=== PATIENT | male | born 1960 | race Caucasian/White ===

== ENCOUNTER 2021-11-23 16:22 | Emergency (ER) | payer OTHER, SELFPAY ==
[2021-11-23 16:44] VITALS: BP 141/74; PULSE 61; RESP 18; TEMP 36.8; O2SAT 98; BMI 25.8
--- NOTE | 2021-11-23 16:52 | ED.BACK ---
HPI - Back Pain/Injury General Chief Complaint: Back Pain/Injury Stated Complaint: Back Pain Time Seen by Provider: 11/23/21 16:51 Source: patient Mode of arrival: ambulatory Limitations: no limitations Related Data Home Medications Medication Instructions Recorded Confirmed gabapentin 300 mg capsule 300 mg PO TID cap 09/08/20 01/04/21 Previous Rx's Medication Instructions Recorded carisoprodol 350 mg tablet 350 mg PO ONCE PRN 30 Days #30 tab 02/13/21 ibuprofen 600 mg tablet 600 mg PO TID PRN #90 tab 06/29/21 meloxicam 15 mg tablet 15 mg PO DAILY #14 tab 11/14/21 hydrocodone 7.5 mg-acetaminophen 1 tab PO BID PRN 15 Days #30 tab 11/15/21 325 mg tablet Allergies Allergy/AdvReac Type Severity Reaction Status Date / Time codeine [CODEINE] Allergy Unknown RASH Verified 11/14/21 15:15 Codeine Sulfate Allergy Unknown facial rash Uncoded 11/14/21 15:15 PMFSH Past Medical History Medical History Carotid stenosis Cervical radiculopathy Lumbar radiculopathy Physical exam Tubular adenoma Surgical History H/O cervical discectomy History of ankle surgery History of inguinal hernia repair History of tonsillectomy Family History Family History Father No problems noted. Mother History of blood clots Maternal Grandmother Stroke Maternal Grandfather History of heart attack Paternal Grandfather Unknown family medical history Paternal Grandmother Unknown family medical history Brother No problems noted. Brother No problems noted. Sister No problems noted. Son No problems noted. Social History Social History Alcohol intake: current Alcohol intake frequency: 3 or more drinks per day Physical Exam Vital Signs: Vital Signs: Last Vital Signs Temp 98.2 F 11/23/21 16:44 Pulse 61 11/23/21 16:44 Resp 18 11/23/21 16:44 BP 141/74 H 11/23/21 16:44 Pulse Ox 98 11/23/21 16:44 BMI result Body Mass Index 25.8 Discharge Plan Discharge Prescriptions: No Action carisoprodol 350 mg tablet 350 mg PO ONCE PRN (Reason: muscle pain) 30 Days Qty: 30 0RF ibuprofen 600 mg tablet 600 mg PO TID PRN (Reason: pain) Qty: 90 2RF hydrocodone-acetaminophen 7.5-325 mg tablet 1 tab PO BID PRN (Reason: pain) 15 Days Qty: 30 0RF gabapentin 300 mg capsule 300 mg PO TID 0RF meloxicam 15 mg tablet 15 mg PO DAILY Qty: 14 0RF
--- NOTE | 2021-11-23 16:58 | ED_ITS ---
HPI - Back Pain/Injury General Chief Complaint: Back Pain/Injury Stated Complaint: Back Pain Time Seen by Provider: 11/23/21 16:51 Source: patient Mode of arrival: ambulatory Limitations: no limitations History of Present Illness HPI Narrative: This is a 61-year-old male past medical history significant for chronic back pain, and chronic lumbar radiculopathy coming in with severe right lower back pain Xyears worse over the past week. patient has been seen by multiple urgent cares and his primary care provider and he is being followed for chronic back pain he is currently taking Vicodin and Soma with relief. However he tells me his pain has been worsening since he started work on Saturday, he tells me it is worse with movement better at rest. He feels like at this time he needs more time off of work as his back pain is getting in the way of his daily life. He denies IV drug abuse. He denies changes in bladder/bowel, paresthesias, numbness or tingling, chest pain, shortness of breath, fevers, chills, nausea, vomiting, weakness. He denies recent back injuries. MD elicited complaint: back pain Pertinent past history: prior back pain Onset (ago): week(s) (2) Timing: constant Severity: severe Pain scale (0-10): 8 Similar Symptoms Previously: Yes Quality: aching and spasming Location: lumbar spine Radiation: none Exacerbating factors: none Relieving factors: none Context: while lifting and turning/twisting Associated symptoms: denies other symptoms Related Data Home Medications Medication Instructions Recorded Confirmed gabapentin 300 mg capsule 300 mg PO TID cap 09/08/20 01/04/21 Previous Rx's Medication Instructions Recorded carisoprodol 350 mg tablet 350 mg PO ONCE PRN 30 Days #30 tab 02/13/21 ibuprofen 600 mg tablet 600 mg PO TID PRN #90 tab 06/29/21 meloxicam 15 mg tablet 15 mg PO DAILY #14 tab 11/14/21 hydrocodone 7.5 mg-acetaminophen 1 tab PO BID PRN 15 Days #30 tab 11/15/21 325 mg tablet Allergies Allergy/AdvReac Type Severity Reaction Status Date / Time codeine [CODEINE] Allergy Unknown RASH Verified 11/14/21 15:15 Codeine Sulfate Allergy Unknown facial rash Uncoded 11/14/21 15:15 Review of Systems Review of Systems: Constitutional : No Weight loss, No Fever, No Chills, No Fatigue, No Malaise ENT/Mouth : No sore throat, No Rhinorrhea Eyes: No Eye Pain, No Swelling, No Redness Cardiovascular : No Chest Pain, No SOB, No Dyspnea on Exertion, No Orthopnea, No Edema, No Palpitations Respiratory : No Cough, No Sputum, No Wheezing Gastrointestinal : No Nausea, No Vomiting, No Diarrhea, No Constipation, No abdominal Pain, No Hematochezia, No Melena Genitourinary : No Dysuria, No Urinary Frequency, No Hematuria, Musculoskeletal : + joint pain (back pain), No Myalgias, No Joint Swelling Skin : No Skin Lesions, No rash Neuro : No Weakness, No Numbness, No Dizziness, No Headache All other systems reviewed and are negative Yes all other systems are reviewed and are negative [facility] Past Medical History Attestation statement: The following information was validated with the patient. Source: old records reviewed and nursing notes reviewed Medical History Carotid stenosis Cervical radiculopathy Lumbar radiculopathy Physical exam Tubular adenoma Surgical History H/O cervical discectomy History of ankle surgery History of inguinal hernia repair History of tonsillectomy Family History Family History Father No problems noted. Mother History of blood clots Maternal Grandmother Stroke Maternal Grandfather History of heart attack Paternal Grandfather Unknown family medical history Paternal Grandmother Unknown family medical history Brother No problems noted. Brother No problems noted. Sister No problems noted. Son No problems noted. Social History Social History Alcohol intake: current Alcohol intake frequency: 3 or more drinks per day Advance Directives: No Advance Directives Information Provided: No Physical Exam Vital Signs: Vital Signs: Last Vital Signs Temp 98.2 F 11/23/21 16:44 Pulse 61 11/23/21 16:44 Resp 18 11/23/21 16:44 BP 141/74 H 11/23/21 16:44 Pulse Ox 98 11/23/21 16:44 BMI result Body Mass Index 25.8 VSS Appearance: Alert.? Oriented X3.? No acute distress.? Head: Normocephalic, atraumatic, no step-offs or deformities Eyes: Pupils equal, round and reactive to light.? ENT: Pharynx normal.? Neck: Normal inspection.? Neck supple.? CVS: Normal heart rate and rhythm.? Pulses normal.? Respiratory: No respiratory distress.? Breath sounds normal.? Abdomen: Soft and nontender.? Skin: Skin warm and dry.? Normal skin color.? Normal skin turgor.? Extremities: No lower extremity edema.? No calf ttp. 5/5 strength to bilateral upper and lower extremities Back: No midline tenderness, no C-spine tenderness, full range of motion, no CVA tenderness bilateral + pain to right-sided lumbar paraspinous muscles. No pain to the left. Positive straight leg raise on the right-hand side. Negative on the left. Neuro: Oriented X 3.? No motor deficit.? No sensory deficit. 2+ patellar reflexes b/l. Course Reevaluation(s) Reevaluation #1: Patient given work note, he will follow up with PCP, educated him on the page managment clinic. Comfortable with DC. Time: 17:20 MDM - Back Pain/Injury MDM Narrative Medical decision making narrative: 1700 61 yo male chronic back pain presents with back pain, feels like his typical worse with movement better at rest it has been present for years however, worse since he started work on saturday. No red flag symptoms. PE significant for pain to right-sided lumbar paraspinous muscles. No pain to the left. Positive straight leg raise on the right-hand side. Negative on the left. Physical exam and history not consistent with cauda equina or epidural abscess. Likely lumbago. Or sciatica. Plan is to give patient a work note. Patient tells me he does not want medication or imaging as he is already had multiple MRIs, x-rays. He has scripts from his PCP. He feels like he does not need anything stronger. Medical Records Attestation: I reviewed the patient's medical records. Lab Data Attestation: I reviewed the patient's lab results. Critical Care Time Critical Care Time Critical Care Time: No Discharge Plan Discharge Clinical Impression: Lumbar radiculopathy Patient Disposition: Home, Self-Care Instructions: Acute Low Back Pain (ED), Lumbar Radiculopathy (ED) Additional Instructions: Take your medications as prescribed. If you were prescribed antibiotics today, it is important that you take your medication to their entirety, do not skip any doses, do not finish them early. Follow-up with your primary care provider this week. Follow up with Pain Management as this appears to be a chronic issues. Return to the emergency department with new or worsening symptoms. In case of emergency call 911. Prescriptions: No Action carisoprodol 350 mg tablet 350 mg PO ONCE PRN (Reason: muscle pain) 30 Days Qty: 30 0RF ibuprofen 600 mg tablet 600 mg PO TID PRN (Reason: pain) Qty: 90 2RF hydrocodone-acetaminophen 7.5-325 mg tablet 1 tab PO BID PRN (Reason: pain) 15 Days Qty: 30 0RF gabapentin 300 mg capsule 300 mg PO TID 0RF meloxicam 15 mg tablet 15 mg PO DAILY Qty: 14 0RF Referrals: Ruel Ventura, GENERAL DENTIST-BC [Primary Care Provider] - 2 days Stand Alone Forms: Work/School Release
== END 2021-11-23 17:37 | disposition home or self-care (01) ==
PROVIDERS: Emergency Provider Emergency Medicine Emergency Medical Services; PCP Nurse Practitioner Family
DX: M54.16 Radiculopathy, lumbar region (principal); Z79.899 Other long term (current) drug therapy
CPT/HCPCS: 99282; 99283

== ENCOUNTER 2022-06-18 16:45 | Emergency (ER) | payer OTHER, SELFPAY ==
--- NOTE | 2022-06-18 19:20 | PC.NURSE ---
called x 3 to triage. presumed LWT
== END 2022-06-18 19:48 | disposition left against medical advice (07) ==
LOC: HO.ED 19:48
PROVIDERS: Emergency Provider Emergency Medicine; PCP Nurse Practitioner Family
DX: M54.2 Cervicalgia (principal)

== ENCOUNTER 2025-08-10 14:41 | Outpatient (AMB) | payer MEDICARE, SELFPAY ==
--- NOTE | 2025-08-10 15:02 | A.OFFPC_ITS ---
Vital Signs 08/10/25 15:04 Height 5 ft 10 in Weight 185 lb BMI 26.5 BP 130/88 Blood Pressure Location Lt brachial Position Sitting Respiration 16 Pulse 70 Pulse Source Pulse Oximeter Temp 98.3 F Temp Source Oral Pulse Oximetry (%) 95 Oxygen Delivery Method Room Air Intake Visit Reasons: PE Developmental Behavioral Physician Required: No Accompanied by: Self / Same As Patient Allergies No Known Drug Allergies Allergy (Unknown, Verified 08/10/25 15:02) none Medication List - Last Reconciled 08/10/25 by MACKENZIE Brown pantoprazole 20 mg PO DAILY 30 days Tobacco use date assessed: 08/10/25 Fall risk assessment: No Falls in past year Last assessed Fall Risk: 08/10/25 Dental Screening Dental Screen Date: 08/10/25 Did you have a dental visit in the last 12 months?: No Did you have a dental problem in the last 6 months where you did not have access to dental care?: No Was dental information given to patient?: Patient has dentist HPI PE HPI Details History of Present Illness The patient is a 64-year-old male presenting for a physical examination, having not been seen in a couple of years. Approximately three weeks ago, the patient experienced chest pain and visited the emergency room, where an EKG was performed and found to be normal. He was diagnosed with a muscle spasm and prescribed an NSAID and methocarbamol, which he reports did not help and caused dizziness. He has a history of responding well to soma in the past. Due for a repeat colon screen, will refer The patient also reports symptoms of acid reflux. He currently denies any active chest pain, shortness of breath, abdominal pain, hematochezia, constipation, or diarrhea. Health Maintenance - The patient is here for a physical exa m as he has not been seen in a couple of years. 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 Review of Systems - Cardiovascular: Denies active chest pa in. - Respiratory: Denies shortness of breat h. - Gastrointestinal: Reports acid reflux. Denies abdominal pain, hematochezia, constipation, and diarrhea. -denies any urinary issues -denies any si or hi Physical Exam General: Cooperative, healthy appearing, comfortable, no acute distress and well developed Orientation: Patient oriented x3 Limitations: No limitations Head: Normal to inspection Ears: Hearing grossly normal bilaterally Nose: Normal external nose present Face and sinus: Normal facial exam Eyes: Appearance normal, both eyes and all related structures Neck: Normal visual inspection and Yes full ROM Respiratory: Normal respiratory effort and able to speak in complete sentences. Clear to auscultation bilaterally Cardiovascular: Regular rate and rhythm. Normal S1 and S2 GI: Normal to inspection. Soft to palpation and nontender : testicles without masses/lesions and no hernias appreciated Skin: No rashes or lesions noted Neuro: Patient oriented x3 Extremities: Normal to inspection Results - Tests and Diagnostics: An EKG performe d at the ER three weeks prior was reported as normal. Plan 1. Muscle Spasm The patient was seen in the ER three weeks ago for chest pain and diagnosed with a muscle spasm after a normal EKG. He reports no relief from a prescribed NSAID and methocarbamol, with the latter causing dizziness. Given his previous positive response to Soma, I will send these, though pt knows he cannot share this medication, take only as prescribed, or drive on this medication 2. Gastroesophageal Reflux Disease The patient reports symptoms of acid reflux. He will be started on a proton pump inhibitor (PPI) for symptom management. Discussion Notes I discussed the patient's recent emergency room visit for chest pain, which was diagnosed as a muscle spasm. We reviewed that the prescribed NSAID and methocarbamol were ineffective, and he experienced dizziness with methocarbamol. I also addressed his complaint of acid reflux and informed him that I will be prescribing a PPI to help manage his symptoms. Patient Instructions - You will be prescribed a new medicatio n for acid reflux. Please take it as directed. [facility] Medical History Physical exam Cervical radiculopathy Tubular adenoma Carotid stenosis Lumbar radiculopathy Surgical History History of ankle surgery History of tonsillectomy History of inguinal hernia repair H/O cervical discectomy Family History Father No problems noted. Mother History of blood clots Maternal Grandmother Stroke Maternal Grandfather History of heart attack Paternal Grandfather Unknown family medical history Paternal Grandmother Unknown family medical history Brother No problems noted. Brother No problems noted. Sister No problems noted. Son No problems noted. Social History Housing: Condominium Alcohol intake: current Alcohol intake frequency: 3 or more drinks per day Patient Tobacco Use Status: Former Tobacco user Years Smoked: quit 40 years ago e-Cigarette/Vaping Use: Never Used Second Hand Smoke Exposure: Yes service: Yes Current occupational status: employed Current occupation: [employer] Current occupational exposures/hazards: No Cognitive needs: No Hearing needs: No Vision needs: No Questionnaire PHQ-9 Over the last 2 weeks, how often have you been bothered by any of the following problems? 1. Little interest or pleasure in doing things: not at all 2. Feeling down, depressed, or hopeless: not at all 3. Trouble falling or staying asleep, or sleeping too much: not at all 4. Feeling tired or having little energy: not at all 5. Poor appetite or overeating: not at all 6. Feeling bad about yourself - or that you are a failure or have let yourself or your family down: not at all 7. Trouble concentrating on things, such as reading the newspaper or watching television: not at all 8. Moving or speaking so slowly that other people could have noticed. Or the opposite - being so fidgety or restless that you have been moving around a lot more than usual: not at all 9. Thoughts that you would be better off or of hurting yourself in some way: not at all Total score: 0 Depression Screening Interpretation: Negative Depression Screening Done: Yes 48784 - PHQ-9 Billing: Yes Source: Developed by Drs. Christiano Barrera, Neli Hansen, Frank Reyes and colleagues, with an educational jennifer from [employer]. Thrive Questionnaire Date Thrive assessed: 01/09/22 AUDIT C Alcohol Use Questionnaire (AUDIT-C) 1. How often do you have a drink containing alcohol?: Monthly or less 2. How many drinks containing alcohol do you have on a typical day when you are drinking?: 3 or 4 Total Score: 2 Score Reviewed/Action Taken: Yes CATERINA-7 AMB Questionnaire CATERINA-7 Date CATERINA - 7 assessed: 08/10/25 Feeling nervous, anxious, or on edge: 0 = Not at all Not being able to stop or control worryin = Not at all Worrying too much about different things: 0 = Not at all Trouble relaxin = Not at all Being so restless that it is hard to sit still: 0 = Not at all Becoming easily annoyed or irritable: 0 = Not at all Feeling afraid as if something awful might happen: 0 = Not at all Total CATERINA-7 score (0-4 normal; 5-9 mild; 10-14 moderate; 15-21 severe): 0 Source: Developed by Drs. Christiano Barrera, Neli Hansen, Frank Reyes and colleagues, with an educational jennifer from [employer]. CATERINA-7 Assessment Billing CATERINA-7 Assessment Tool: CATERINA-7 Assessment 78577 Physical exam (Primary Care) Vital Signs: Last Vital Signs Temp 98.3 F 08/10/25 15:04 Pulse 70 08/10/25 15:04 Resp 16 08/10/25 15:04 BP 130/88 08/10/25 15:04 Pulse Ox 95 08/10/25 15:04 Oxygen Delivery Method Room Air 08/10/25 15:04 BMI result Body Mass Index 26.5 Tobacco/Smoking Status: Tobacco use Status Tobacco use date assessed 08/10/25 08/10/25 15:09 Patient Tobacco Use Status Former Tobacco user 08/10/25 15:09 e-Cigarette/Vaping Use Never Used 08/10/25 15:09 PHQ-9: PHQ-9 Score PHQ-9: Total score 0 08/10/25 15:09 Depression Screening Interpretation: Negative Thrive Assessment: Date of Thrive Assessment Date Thrive assessed 01/09/22 08/10/25 15:09 Coding Level of Care Code Est Pt Level 3 (05659) Est Pt Prev Care >65y(51154) Diagnoses Physical exam Z00.00 Screening PSA (prostate specific antigen) Z12.5 Screening for colon cancer Z12.11 Muscle spasm M62.838 Additional Codes CATERINA-7 Assessment Billing - CATERINA-7 Assessment Tool: CATERINA-7 Assessment 96488 ([id number]) PHQ-9 - 01836 - PHQ-9 Billing: Yes ([id number]) Assessment & Plan Assessment & Plan (1) Physical exam: Code(s): Z00.00 - Encounter for general adult medical examination without abnormal findings Category: Medical (2) Screening PSA (prostate specific antigen): Code(s): Z12.5 - Encounter for screening for malignant neoplasm of prostate Category: Medical (3) Screening for colon cancer: Code(s): Z12.11 - Encounter for screening for malignant neoplasm of colon Category: Medical (4) Muscle spasm: Code(s): M62.838 - Other muscle spasm Category: Medical Plan . Orders: Orders Complete Blood Count Auto Diff Today Z00.00 - Encounter for general adult medical examination without abnormal findings UA CC w/rflx Micro + Cult Today Z00.00 - Encounter for general adult medical examination without abnormal findings Prostate Specific Antigen Scr Today Z12.5 - Encounter for screening for malignant neoplasm of prostate Comprehensive [place]. Panel Fast Today Z00.00 - Encounter for general adult medical examination without abnormal findings TSH reflex Free T4 Today Z00.00 - Encounter for general adult medical examination without abnormal findings Lipid Panel Today Z00.00 - Encounter for general adult medical examination without abnormal findings Referrals Gastroenterology Referral Z12.11 - Encounter for screening for malignant neoplasm of colon Medications: New pantoprazole 20 mg PO DAILY 30 tabs 3RF 30 days carisoprodol (Soma) 350 mg PO BEDTIME PRN 30 tabs 0RF muscle pain 30 days
[2025-08-10 15:04] VITALS: BP 130/88; PULSE 70; RESP 16; TEMP 36.8; O2SAT 95; BMI 26.5
--- OUTSIDE RECORDS SUMMARY | 2025-08-10 17:46 | XMS_ITS | Clinical Summary ---
Author Organization [facility] [employer] Address [address] [place] [address] [address] [place] [address] Care Team Providers Care Campaign Consultant Name Role Phone Unavailable Primary Care Provider Unavailabl e Allergies No known active allergies Medications No known medications Social History Tobacco Use Types Packs/Day Years Used Date Smoking Tobacco: Never Assessed Sex and Gender Information Value Date Recorded Sex Assigned at Male 08/06/2022 10:24 AM EDT Legal Sex Male 10:24 AM EDT Gender Identity Male 09/17/2024 8:08 AM EST Sexual Orientation Choose not to disclose 2023 8:08 AM EST Last Filed Vital Signs Vital Sign Reading Time Taken Comments Blood Pressure 136/76 09/17/2024 8:13 AM EST Pulse - - Temperature - - Respiratory Rate - - Oxygen Saturation - - Inhaled Oxygen Concentration - - Weight - - Height - - Body Mass Index - - Plan of Treatment Health Maintenance Due Date Last Done Comments CT Colonography 1959 Colonoscopy 1959 Colorectal Cancer Screening 1959 Dental Prophylaxis 1959 Depression Screening 1959 FIT DNA/Cologuard 1959 FIT 1959 FOBT 1959 Lipid Panel 1959 SDOH Screening 1959 Sigmoidoscopy 1959 Alcohol/Substance Use Screening 1971 Tobacco Screening 1971 Hepatitis C Screening 1977 DTaP/Tdap/Td Vaccines (1 - Tdap) 1978 Pneumococcal Vaccine: 50+ Years (1 of 1 - PCV) 2009 Zoster Vaccines (1 of 2) 2009 Dental X-Ray: Bitewings 09/15/2015 09/14/20 14, 09/14/2014 Dental Oral Exam 08/31/2016 02/28/2016, 09/14/2014 Dental X-Ray: Full Mouth 09/15/2017 014, 09/14/2014, 05/10/2010 COVID-19 Vaccine (2023-2 5 season) 2025 Influenza Vaccine (#1) 2025 RSV Patients and Patients Aged 60 years or older (1 - 1-dose 75+ series) 2034 HIB Vaccines Aged Out No longer eligi ble based on patient's age to complete this topic HPV Vaccines Aged Out No longer eligi ble based on patient's age to complete this topic Hepatitis A Vaccines Aged Out No long er eligible based on patient's age to complete this topic Hepatitis B Vaccines Aged Out No long er eligible based on patient's age to complete this topic IPV Vaccines Aged Out No longer eligi ble based on patient's age to complete this topic Meningococcal B Vaccine Aged Out No l onger eligible based on patient's age to complete this topic Meningococcal Vaccine Aged Out No giorgio alicia eligible based on patient's age to complete this topic RSV under 20 months Aged Out No longe r eligible based on patient's age to complete this topic Rotavirus Vaccines Aged Out No longer eligible based on patient's age to complete this topic Procedures Procedure Name Priority Date/Time Associated Diagnosis Comments PERIODIC ORAL EVALUATION - ESTABLISHED PATIENT Routine 02/28/2016 12:00 AM EDT INTRAORAL - COMPLETE SERIES OF RADIOGRAPHIC IMAGES Routine 09/14/2014 12:00 AM EST from Last 3 Months or Most Recently Relevant to Health Maintenance
--- OUTSIDE RECORDS SUMMARY | 2025-08-10 17:46 | XMS_ITS | Patient Health Record ---
Author Organization [facility] Address [address] [place] [address] Care Team Providers Care International Affairs Vice President Name Role Phone ARLETTE SALMON Primary Care Provider Christiano Rodgers [phone] Allergies Allergen (clinical drug ingredient) Drug/Non Drug Allergy documented on EMR Reaction Allergy Type Onset Date Status codeine Codeine Sulfate Unknown Drug Allergy A ctive Reason For Referral No Information Medications Medication SIG (Take, Route, Frequency, Duration) Notes Start Date End Date Status Colyte w Flavor Packs 240 GM as directed Orally as directed; Duration: 1 day(s) 07/24/2015 Active Robaxin-750 750 MG 1 tablet Orally ever y 4 hrs Active Gabapentin 300 MG 1 capsule Orally Thr ee times a day/ as needed Active Problems Problem Type SNOMED Code ICD Code Onset Dates Problem Status W/U Status Risk Notes Problem Screening for malignant neoplasm of colon (309776711) Encounter for screening for malignant neoplasm of colon (Z12.11) Active confirmed Problem Preprocedural examination (794862464366398) Preprocedural examination (Z01.818) Active confirmed Plan Of Treatment Future Test Test Name Order Date COLONOSCOPY 07/21/2015 Insurance Providers Payer Name Payer Address Payer Phone Subscriber Number Group Number Insured Name Patient Relationship to Insured Coverage Start Date Coverage End Date [facility] [employer] [facility] [address] [address] [place], [place] [id number] ALTAF PARR Self - patient is the insured MEDICAID OF [facility] [address] [place] [id number] [phone] [id number] PARRALTAF REZA Self - patient is the insured Medical (General) History Medical History History ICD Code Denies LA,DM,CVA,Lung disease,renal dise ase Back pain and neck pain--has had cortiso ne shots in his back Surgical History Surgery Date(Month/Year) Right inguinal hernia 05/2015 broken right leg 1995 right inguinal hernia 1990 tonsils 1972
--- OUTSIDE RECORDS SUMMARY | 2025-08-10 17:46 | XMS_ITS | Clinical Summary ---
Author Organization [facility] Address [address] [place] [address] Phone Care Team Providers Care Mobile Ui Developer Name Role Phone Physician, No Pcp Primary Care Provider Unavaila ble Allergies No known active allergies Medications methocarbamoL (ROBAXIN) 500 mg tablet Take 1 tablet (500 mg total) by mouth 4 (four) times a day for 5 days. 20 each 5 Active ketorolac (TORADOL) 10 mg tablet Take 1 tablet (10 mg total) by mouth every 6 (six) hours if needed for moderate pain for up to 5 days. 20 tablet 5 07/25/20 25 Encounters Date Type Department Care Team Description 07/20/2025 3:49 PM EDT - 07/20/2025 4:22 PM EDT Emergency [facility] Emergency [address] [place] [address] Sb Shaver MD Musculoskeletal chest pain (Primary Dx) Discharge Disposition: Home or Self Care from Last 3 Months Social History Tobacco Use Types Packs/Day Years Used Date Smoking Tobacco: Never Smokeless Tobacco: Never Tobacco Cessation:Counseling Given: Not Answered Sex and Gender Information Value Date Recorded Sex Assigned at Not on file Legal Sex Male 3:02 PM EST Gender Identity Not on file Sexual Orientation Not on file Obstetrics History Last Filed Vital Signs Vital Sign Reading Time Taken Comments Blood Pressure 162/90 07/20/2025 12:17 PM EDT Pulse 73 07/20/2025 12:17 PM EDT Temperature 37 C (98.6 F) 07/20/2025 12:17 PM EDT Respiratory Rate 18 07/20/2025 12:17 PM EDT Oxygen Saturation 98% 07/20/2025 12:17 PM EDT Inhaled Oxygen Concentration - - Weight 79.4 kg (175 lb) 07/20/2025 12:17 PM EDT Height 177.8 cm (5' 10 ) 07/20/2025 12:17 PM EDT Body Mass Index 25.11 07/20/2025 12:17 PM EDT Plan of Treatment Health Maintenance Due Date Last Done Comments Colorectal Cancer Screening: Colonoscopy 1959 DTaP,Tdap,and Td Vaccines (1 - Tdap) 1978 Pneumococcal Vaccine: 50+ Ye ars (1 of 1 - PCV) 2009 Zoster Vaccines (1 of 2) 2009 Depression Screening 10/07/2024 COVID-19 Vaccine (1 - 2023-2 5 season) 2025 Influenza Vaccine (#1) 2025 Cholesterol Screening (Lipid Panel) 07/20/2025 Falls Risk Assessment 07/20/2025 Hepatitis C Screening 07/20/2025 Medicare Annual Wellness Visit 07/20/2025 Social Influencers of Health Screening 07/20/2025 RSV Immunization Adult Patie nts (1 - 1-dose 75+ series) 2034 HIB [...] on patient's age to complete this topic MMR Vaccines Aged Out No longer eligi ble based on patient's age to complete this topic Meningococcal ACWY Vaccine Aged Out N o longer eligible based on patient's age to complete this topic Meningococcal B Vaccine Aged Out No l onger eligible based on patient's age to complete this topic RSV Immunization Patients Un willie 20 months Aged Out No longer eligible b ased on patient's age to complete this topic Varicella Vaccines Aged Out No longer eligible based on patient's age to complete this topic Procedures Procedure Name Priority Date/Time Associated Diagnosis Comments ECG ANNOTATED 07/21/2025 XR CHEST 2 VIEWS STAT 07/20/2025 2:16 PM EDT ECG 12-LEAD STAT 07/20/2025 1:50 PM EDT D-DIMER STAT 07/20/2025 1:47 PM EDT TROPONIN I HIGH SENSITIVITY Timed 07/20/2025 1:47 PM EDT CBC WITH AUTO DIFFERENTIAL STAT 07/20/2025 12:23 PM EDT B-TYPE NATRIURETIC PEPTIDE STAT 07/20/2025 12:23 PM EDT MAGNESIUM STAT 07/20/2025 12:23 PM EDT LIPASE STAT 07/20/2025 12:23 PM EDT COMPREHENSIVE METABOLIC PANEL STAT 07/20/2025 12:23 PM EDT CBC AND DIFFERENTIAL STAT 07/20/2025 12:23 PM EDT TROPONIN I HIGH SENSITIVITY Timed 07/20/2025 12:23 PM EDT ECG 12-LEAD STAT 07/20/2025 12:15 PM EDT from Last 3 Months Results * ECG-Annotated (07/21/2025) us Provider Onbase MD ECG ORDERABLES Final Result * XR Chest 2 Views (07/20/2025 2:16 PM EDT) Anatomical Region Laterality Modality Body Radiographic Hannah ging 07/20/2025 2:48 PM EDT Impressions 07/20/2025 2:49 PM EDT Pulmonary hyperinflation. No acute findings. -------- FINAL REPORT -------- Dictated By: Chris Ross Dictated Date: 07/20/2025 14:48 ET Assigned Physician: Chris Ross Reviewed and Electronically Signed By: Chris Ross Signed Date: 07/20/2025 14:49 ET Workstation ID: [id number] Transcribed By: Self Edit Transcribed Date: 07/20/2025 14:48 ET Narrative 07/20/2025 2:49 PM EDT PROCEDURE: PA and lateral radiographs of the chest. HISTORY: chest pain. COMPARISON: None. FINDINGS: Lungs are hyperinflated but clear. Cardiac mediastinal contours, pulmonary vasculature, and pleural spaces are normal. Bones appear demineralized. ACDF hardware. Procedure Note Chris Ross MD - 07/20/2025 PROCEDURE: PA and lateral radiographs of the chest. HISTORY: chest pain. COMPARISON: None. FINDINGS: Lungs are hyperinflated but clear. Cardiac mediastinal contours,pulmonary vasculature, and pleural spaces are normal. Bones appeardemineralized. ACDF hardware. IMPRESSION: Pulmonary hyperinflation. No acute findings. -------- FINAL REPORT -------- Dictated By: Chris Ross Dictated Date: 07/20/2025 14:48 ET Assigned Physician: Chris Ross Reviewed and Electronically Signed By: Chris Ross Signed Date: 07/20/2025 14:49 ET Workstation ID: [id number] Transcribed By: Self Edit Transcribed Date: 07/20/2025 14:48 ET Sb Shaver MD IMG XR PROCEDURES Final Result * ECG 12 lead (07/20/2025 1:50 PM EDT) Only the most recent of2 resultswithin the time period is included. Ventricular Rate ECG 64 BPM GEMUSE Atrial Rate 64 BPM GEMUSE P-R Interval 148 ms GEMUSE QRS Duration 88 ms GEMUSE Q-T Interval 424 ms GEMUSE QTc 437 ms GEMUSE P Wave [place] 30 degrees GEMUSE R [place] 42 degrees GEMUSE T [place] 19 degrees GEMUSE ECG Interpretation Normal sinus rhythm Normal ECG When compared with ECG of 20-JUL-2025 12:15, No significant change was found Confirmed by MD Evaristo, Dann ([id number]) on 07/21/2025 9:23:48 AM GEMUSE 07/20/2025 1:50 PM EDT 07/21/2025 9:23 AM EDT Sb Shaver MD ECG ORDERABLES Final Result Performing Organization Address [facility] de Phone Number GEMUSE * Troponin I high sensitivity (07/20/2025 1:47 PM EDT) Only the most recent of2 resultswithin the time period is included. [facility] High Sensitivity Troponin I 6 <=79 ng/L LAB CHEMISTRY METHOD 07/20/2025 2:34 PM EDT [facility] Blood Venous blood specimen / Unknown Venipuncture / Unknown 07/20/2025 1:47 PM EDT 07/20/2025 2:04 PM EDT [facility] - 07/20/2025 2:34 PM EDT High levels of biotin in samples may falsely decrease hsTroponin values. Use caution when interpreting hsTroponin results in patients taking biotin who exhibit renal impairment (eGFR <60) or in patients taking more than 20 mg/day of biotin. Sb Shaver MD LAB BLOOD ORDERABLES Final Res ult Performing Organization Address [facility] de Phone Number [facility] [address] [place] [address], * D-Dimer (Quantitative) (07/20/2025 1:47 PM EDT) [facility] D-Dimer, Quant (D-DU) <150 <=230 ng/mL DDU LAB COAGULATION METHOD 07/20/2025 2:18 PM EDT [facility] Blood Venous blood specimen / Unknown Venipuncture / Unknown 07/20/2025 1:47 PM EDT 07/20/2025 2:04 PM EDT [facility] - 07/20/2025 2:18 PM EDT D-Dimer <230 ng/mL (D-Dimer units) is the threshold for exclusion of DVT/PE. D-Dimer may be elevated in: Critically ill, severely infected, trauma patients, DIC, acute CVA, acute CA, unstable angina, AF, old age, , and smoking. D-Dimer may be decreased with: Initiation of heparin therapy and oral anticoagulants. us Sb Shaver MD LAB BLOOD ORDERABLES Final Res ult [facility] [address] [place] [address], [place] [phone] * CBC auto differential (07/20/2025 12:23 PM EDT) WBC 6.5 4.8 - 10.8 K/mcL LAB HEMETOLOGY METHOD 07/20/2025 12:48 PM EDT [facility] RBC 5.00 4.50 - 5.50 M/mcL LAB HEMETOLOGY METHOD 07/20/2025 12:48 PM EDT [facility] Hemoglobin 16.1 13.5 - 17.5 g/dL LAB HEMETOLOGY METHOD 07/20/2025 12:48 PM EDT [facility] Hematocrit 47.3 42.0 - 54.0 % LAB HEMETOLOGY METHOD 07/20/2025 12:48 PM EDT [facility] MCV 94.0 79.0 - 98.0 FL LAB HEMETOLOGY METHOD 07/20/2025 12:48 PM EDT [facility] MCH 32.0 27.0 - 32.0 pcg LAB HEMETOLOGY METHOD 07/20/2025 12:48 PM EDT [facility] MCHC 34.0 32.0 - 37.0 g/dL LAB HEMETOLOGY METHOD 07/20/2025 12:48 PM EDT [facility] RDW 12.9 11.0 - 15.0 % LAB HEMETOLOGY METHOD 07/20/2025 12:48 PM EDT [facility] Platelets 199 130 - 400 K/mcL LAB HEMETOLOGY METHOD 07/20/2025 12:48 PM EDT [facility] MPV 8.9 7.0 - 11.0 FL LAB HEMETOLOGY METHOD 07/20/2025 12:48 PM EDT [facility] NRBC 0.0 <1.0 % LAB HEMETOLOGY METHOD 07/20/2025 12:48 PM EDT [facility] NRBC Absolute 0.00 <0.10 K/mcL LAB HEMETOLOGY METHOD 07/20/2025 12:48 PM EDT [facility] Neutrophils Relative 54.7 % LAB HEMETOLOGY METHOD 07/20/2025 12:[facility] Lymphocytes Relative 29.3 % LAB HEMETOLOGY METHOD 07/20/2025 12:48 PM EDT [facility] Monocytes Relative 13.1 % LAB HEMETOLOGY METHOD 07/20/2025 12:48 PM [facility] Eosinophils Relative 1.4 % LAB HEMETOLOGY METHOD 07/20/2025 12:48 PM [facility] Basophils Relative 1.2 % LAB HEMETOLOGY METHOD 07/20/2025 12:48 PM EDT [facility] Immature Granulocytes Relative 0.3 % LAB HEMETOLOGY METHOD 07/20/2025 12:48 PM EDT [facility] Neutrophils Absolute 3.54 1.50 - 7.00 K/mcL LAB HEMETOLOGY METHOD 07/20/2025 12:48 PM [facility] Lymphocytes Absolute 1.90 1.00 - 5.00 K/mcL LAB HEMETOLOGY METHOD 07/20/2025 12:48 PM EDT [facility] Monocytes Absolute 0.85 0.20 - 1.00 K/mcL LAB HEMETOLOGY METHOD 07/20/2025 12:48 PM EDT [facility] Eosinophils Absolute 0.09 0.00 - 0.50 K/[facility] LAB HEMETOLOGY METHOD 07/20/2025 12:48 PM EDT [facility] Basophils Absolute 0.08 0.00 - 0.20 K/mcL LAB HEMETOLOGY METHOD 07/20/2025 12:48 PM EDT [facility] Immature Granulocytes Absolute 0.02 0.00 - 0.03 K/[facility] LAB HEMETOLOGY METHOD 07/20/2025 12:48 PM EDT [facility] Blood Venous blood specimen / Unknown Venipuncture / Unknown 07/20/2025 12:23 PM EDT 07/20/2025 12:37 PM EDT Sb Shaver MD LAB BLOOD ORDERABLES Final Res ult [facility] [address] [place] [address], [place] [phone] * B-type natriuretic peptide (07/20/2025 12:23 PM EDT) [facility] BNP 24 <=100 pcg/mL LAB CHEMISTRY METHOD 07/20/2025 1:44 PM EDT [facility] Blood Venous blood specimen / Unknown Venipuncture / Unknown 07/20/2025 12:23 PM EDT 07/20/2025 12:37 PM EDT Sb Shaver MD LAB BLOOD ORDERABLES Final Res ult [facility] [address] [place] [address], [place] [phone] * Magnesium (07/20/2025 12:23 PM EDT) Magnesium 2.4 1.9 - 2.6 mg/dL LAB CHEMISTRY METHOD 07/20/2025 1:10 PM EDT [facility] Blood Venous blood specimen / Unknown Venipuncture / Unknown 07/20/2025 12:23 PM EDT 07/20/2025 12:37 PM EDT us Sb Shaver MD LAB BLOOD ORDERABLES Final Res ult Performing Organization Address City/[facility]/ZIP Co de Phone Number [facility] [address] [place] [address], [place] [phone] * Lipase (07/20/2025 12:23 PM EDT) [facility] Lipase 44 13 - 75 unit/L LAB CHEMISTRY METHOD 07/20/2025 1:10 PM EDT [facility] Blood Venous blood specimen / Unknown Venipuncture / Unknown 07/20/2025 12:23 PM EDT 07/20/2025 12:37 PM EDT us Sb Shaver MD LAB BLOOD ORDERABLES Final Res ult Performing Organization Address [facility]/ZIP Co de Phone Number [facility] [address] [place] [address], [place] [phone] * (ABNORMAL) Comprehensive metabolic panel (07/20/2025 12:23 PM EDT) [facility] Sodium 133 133 - 145 mmol/L LAB CHEMISTRY METHOD 07/20/2025 1:10 PM EDT [facility] Potassium 4.5 3.5 - 5.5 mmol/L LAB CHEMISTRY METHOD 07/20/2025 1:10 PM EDT [facility] Chloride 101 96 - 110 mmol/L LAB CHEMISTRY METHOD 07/20/2025 1:10 PM EDT [facility] CO2 24 21 - 32 mmol/L LAB CHEMISTRY METHOD 07/20/2025 1:10 [facility] Anion Gap 8 3 - 11 LAB CHEMISTRY METHOD 07/20/2025 1:10 PM [facility] Glucose 124(H) 70 - 100 mg/dL LAB CHEMISTRY METHOD 07/20/2025 1:10 PM [facility] BUN 8 5 - 25 mg/dL LAB CHEMISTRY METHOD 07/20/2025 1:10 PM [facility] Creatinine 1.02 0.70 - 1.30 mg/dL LAB CHEMISTRY METHOD 07/20/2025 1:10 PM [facility] eGFR 82 >=60 mL/min/1. 73m2 LAB CHEMISTRY METHOD 07/20/2025 1:10 PM [facility] Comment:Calculation based on the Chronic Kidney Disease Epidemiology Collaboration (CKD-EPI) equation refit without adjustment for race. BUN/Creatinine Ratio 7.8 LAB CHEMISTRY METHOD 07/20/2025 1:10 PM [facility] Calcium 9.5 8.5 - 10.5 mg/dL LAB CHEMISTRY METHOD 07/20/2025 1:10 PM [facility] AST (SGOT) 36 10 - 42 unit/L LAB CHEMISTRY METHOD 07/20/2025 1:10 PM [facility] ALT (SGPT) 45 10 - 60 unit/L LAB CHEMISTRY METHOD 07/20/2025 1:10 PM [facility] Alkaline Phosphatase 71 42 - 121 unit/L LAB CHEMISTRY METHOD 07/20/2025 1:10 PM [facility] Total Protein 7.7 6.0 - 8.0 g/dL LAB CHEMISTRY METHOD 07/20/2025 1:10 PM [facility] Albumin 3.9 3.2 - 5.0 g/dL LAB CHEMISTRY METHOD 07/20/2025 1:10 PM [facility] Total Bilirubin 0.8 0.0 - 1.4 mg/dL LAB CHEMISTRY METHOD 07/20/2025 1:10 PM EDT [facility] Blood Venous blood specimen / Unknown Venipuncture / Unknown 07/20/2025 12:23 PM EDT 07/20/2025 12:37 PM EDT us Sb Shaver MD LAB BLOOD ORDERABLES Final Res ult [facility] [address] [place] [address], from Last 3 Months Insurance [facility] MEDICARE ADVANTAGE on file Care Teams Mobile Ui Developer Relationship Specialty Start Date End Date Physician, No Pcp PCP - General 07/20/25
== END 2025-08-10 15:58 | disposition home or self-care (01) ==
PROVIDERS: PCP Nurse Practitioner Family; Visit Provider Nurse Practitioner Family
DX: M62.838 Other muscle spasm (principal); Z12.5 Encounter for screening for malignant neoplasm of prostate; Z12.11 Encounter for screening for malignant neoplasm of colon

== ENCOUNTER → 2025-08-10 14:41 | Outpatient (BNVA) | payer MEDICARE, SELFPAY | PROVIDERS: PCP Nurse Practitioner Family; Visit Provider Nurse Practitioner Family | DX: Z00.00 Encounter for general adult medical examination without abnormal findings (principal); M62.838 Other muscle spasm; K21.9 Gastro-esophageal reflux disease without esophagitis | CPT/HCPCS: 96127; 99212 ==